=== PATIENT | male | born 1950 | race Caucasian/White ===

== ENCOUNTER 2020-05-31 18:13 | Emergency (ER) | payer MEDICARE, MEDICAID, SELFPAY ==
--- NOTE | 2020-05-31 18:18 | ECG_ITS ---
[facility] Test Date: 2020-05-31 Pat Name: Brigido Duenas Department: Room: Gender: Male Paediatric Surgeon: : 1950 Requested By: Malina Larkin Order Number: [id number] Joel MD: Adam Orellana M.D. Measurements Intervals [place] Rate: 72 P: 42 AK: 185 QRS: 241 QRSD: 107 T: 63 QT: 384 QTc: 421 Interpretive Statements SINUS RHYTHM INDETERMINATE AXIS No previous ECG available for comparison Electronically Signed On 05-31-2020 19:43:51 CDT by Adam Orellana M.D. [id number]
--- NOTE | 2020-05-31 18:18 | XRR_ITS ---
PROCEDURE INFORMATION: Exam: XR Chest, 1 View Exam date and time: 05/31/2020 6:54 PM Age: 70 years old Clinical indication: Shortness of breath; Additional info: SOB TECHNIQUE: Imaging protocol: XR of the chest Views: 1 view. COMPARISON: No relevant prior studies available. FINDINGS: Lungs: COPD/chronic bronchitis/centrilobular emphysema. Evidence of antecedent granulomatous disease. No visible active interstitial or alveolar airspace disease. Pleural space: Unremarkable. No pleural effusion. No pneumothorax. Heart/Mediastinum: Cardiac structures and configuration with arteriosclerosis. Bones/joints: Unremarkable. XR/XR chest 1V portable [id number] IMPRESSION: Nonacute.
[2020-05-31 18:33] VITALS: BP 157/88; PULSE 79; RESP 16; TEMP 36.8; O2SAT 95; BMI 23.1
--- NOTE | 2020-05-31 18:37 | ED_ITS ---
HPI - SOB/Dyspnea General: Chief Complaint: Shortness of Breath/Dyspnea Stated Complaint: SOB/ LOW O2 SATS Time Seen by Provider: 05/31/20 18:34 Source: patient and EMS Mode of arrival: EMS Limitations: no limitations History of Present Illness: HPI Narrative: 70-year-old male has a long history of COPD and is on 4 L of oxygen at home. Patient was at clinic today missing being seen for possible pneumonia as he states had increasing cough. Patient's oxygen saturation there was 74% with EMS believes his oxygen was not working so they put his oxygen off and put him on 4 L with him he has been satting in the 90s. Patient currently is in no distress is on 4 L oxygen is 96%. He denies any fever. Denies any worsening or improving factors. Associated symptoms: Deny abdominal pain, chest pain, fever(s), nausea or vomiting Review of Systems Const: Denies: fever(s), chills, body aches or change in appetite Eyes: Denies: blurry vision or eye discomfort ENMT: Denies: throat pain or dental pain Card: Denies: chest pain Resp: Reports: dyspnea and wheezing GI: Denies: abdominal pain, nausea, vomiting or diarrhea : Denies: dysuria Musc: Denies: neck pain or back pain Skin/Breast: Denies: rash Neuro: Denies: headache(s) Psych: Denies: depression Robby/Lymph: Denies: easy bruising All/Imm: Denies: urticaria PFSH ED PFSH: Medical History (Updated 05/31/20 @ 21:08 by Malina Larkin MD) COPD exacerbation Encounter for screening for other viral diseases Physical Exam Const: COMMON NORMALS: no acute distress, patient oriented x3 and healthy appe aring HENMT: COMMON NORMALS: normocephalic and atraumatic HEAD & SCALP: normocephalic and atraumatic Eye: COMMON NORMALS: Equal, round and reactive pupils present and EOMs intact bilaterally PUPIL: Yes Equal, round and reactive pupils present Neck/C-Spine: COMMON NORMALS: full ROM and supple Chest: COMMONS NORMALS: normal inspection of the chest and normal palpation of entire chest wall Resp: COMMON NORMALS: normal respiratory effort, No retractions and No use of accessory muscles AUSCULTATION: wheezes Cardio: COMMON NORMALS: regular rate, regular rhythm and No murmurs present (Cardio) RATE: regular rate RHYTHM: regular rhythm GI: COMMON NORMALS: Normal to inspection, nondistended, normoactive bowel sounds present, Soft to palpation, non-tender and no masses PALPATION: Yes Soft to palpation Extremity: COMMON NORMALS: normal to inspection and full ROM Neuro: COMMON NORMALS: patient oriented x3, moves all extremities and no focal motor deficits Psych: COMMON NORMALS: mental status grossly normal, Normal thought process present and cooperative THOUGHT PROCESS: Normal thought process present Skin: COMMON NORMALS: no rashes or lesions noted and no wounds GENERAL SKIN EXAM: no rashes or lesions noted Course Vital Signs: Vital signs: Vital Signs Temperature 98.3 F 05/31/20 18:33 Pulse Rate 74 05/31/20 20:32 Respiratory Rate 20 H 05/31/20 20:32 Blood Pressure 147/86 05/31/20 20:32 Pulse Oximetry 92 05/31/20 20:32 MDM - SOB/Dyspnea MDM Narrative: Medical decision making narrative: Patient presents here with dyspnea that is since resolved. Likely COPD exacerbation will place on steroids. X-ray here shows no signs of pneumonia and his blood work is all normal. He is at his baseline 4 L in no distress and saturations are in the mid 90s. He is to follow-up with PCP in 3 to 5 days return if worsening. Lab Data: Labs: Lab Results 05/31/20 05/31/20 05/31/20 Range/Units 19:20 20:00 20:00 WBC 9.6 (4.0-10.0) 10^3/ uL RBC 4.77 (4.1-5.3) 10^6/u L Hgb 13.4 (11.7-16.6) g/dL Hct 43.6 (42.0-52.0) % MCV 91.4 (80-94) fL MCH 28.1 (28.0-34.0) pg MCHC 30.7 (30.0-36.0) g/dL RDW 16.9 H (12.1-15.1) % Plt Count 194 (130-400) 10^3/c mm MPV 10.3 (7.4-10.4) fL Neut % (Auto) 86.4 % Lymph % (Auto) 7.0 % [place] % (Auto) 6.1 % Eos % (Auto) 0.0 % Baso % (Auto) 0.1 % Neut # (Auto) 8.26 H (1.8-7.7) 10^3/u L Lymph # (Auto) 0.7 L (0.8-4.8) 10^3/u L [place] # (Auto) 0.6 (0.2-0.9) 10^3/u L Eos # (Auto) 0.0 (0.0-0.8) 10^3/u L Baso # (Auto) 0.0 (0.0-0.1) 10^3/u L Nucleated RBC % (a uto) 0 % Nucleated RBCs # 0.0 /100WBC Sodium 135 L (136-145) mmol/L Potassium 4.0 (3.5-5.1) mmol/L Chloride 92 L (98-107) mmol/L Carbon Dioxide 31 H (22-29) mmol/L Anion Gap 16.0 (5-19) BUN 19 (8-23) mg/dL Creatinine 0.8 (0.7-1.2) mg/dL GFR Calculation 95.8 (90-130) mL/min Glucose 106 (65-115) mg/dL Calculated Osmolal ity 283 L (285-295) mOsm/k g Calcium 10.2 (8.5-10.5) mg/dL Total Bilirubin 0.3 (0.15-1.2) mg/dL AST 27 (0-40) U/L ALT 18 (0-41) U/L Alkaline Phosphata se 50 (40-130) IU/L NT-Pro-B Natriuret Pep 169 H (0-125) pg/mL Total Protein 7.3 (6.6-8.7) g/dL Albumin 4.1 (3.5-5.2) g/dL Globulin 3.2 (1.3-4.6) g/dL SARS-CoV-2 Ag (Rap id) Negative (Negative) EKG Data^: EKG 1: Attestation: I personally reviewed and interpreted this EKG as follows: EKG Interpretation Date: 05/31/20 EKG interpretation time: 18:49 Interpretation: nsr hr [address] or t wave abnormalities qrs 107 qtc 408 Discharge Plan Discharge Patient Disposition: Home Clinical Impression: COPD exacerbation Condition: Stable Prescriptions: New prednisone 50 mg tablet 50 mg PO DAILY Qty: 5 RF: 0 No Action albuterol sulfate 2.5 mg /3 mL (0.083 %) solution for nebulization 2.5 mg inhalation Q6H PRN (Reason: Shortness Of Breath) RF: 0 lisinopril 20 mg tablet 20 mg PO DAILY RF: 0 lovastatin 40 mg tablet 40 mg PO DAILY RF: 0 amlodipine 5 mg tablet 5 mg PO DAILY RF: 0 acyclovir 400 mg tablet 400 mg PO DAILY RF: 0 trazodone 150 mg tablet 150 mg PO BEDTIME RF: 0 alprazolam 2 mg tablet 2 mg PO BID PRN (Reason: Anxiety) RF: 0 duloxetine 60 mg capsule,delayed release(DR/EC) 60 mg PO BID RF: 0 fenofibrate 160 mg tablet 160 mg PO DAILY RF: 0 Anoro Ellipta 62.5-25 mcg/actuation blister with device 1 inh INHALATION BID RF: 0 Discharge Orders: Discharge Order (Routine); Ordered 05/31/20 Ordered By: Malina Larkin Referrals: Eliud Washington FNP [Primary Care Provider] - 1-3 days Discharge Diet: Advance as tolerated Discharge Activity: Resume usual activity Patient Instructions: Chronic Obstructive Pulmonary Disease (ED) Coding Level of Care Code ED [employer] for [employer] Fwd Exam Comprehensive
[2020-05-31 18:42] VITALS: BP 157/88; PULSE 74; RESP 18; O2SAT 95
[2020-05-31 19:57] LABS: SARS Covid-2 Antigen Negative (Negative)
[2020-05-31 20:17] LABS: Basophils % 0.1 %; Hematocrit 43.6 % (42.0-52.0); Hemoglobin 13.4 g/dL (11.7-16.6); Lymphocytes # 0.7 10^3/uL (0.8-4.8); Mean Corpuscular HGB Conc 30.7 g/dL (30.0-36.0); Mean Corpuscular Hemoglobin 28.1 pg (28.0-34.0); Mean Corpuscular Volume 91.4 fL (80-94); Mean Platelet Volume 10.3 fL (7.4-10.4); Monocytes # 0.6 10^3/uL (0.2-0.9); Monocytes % 6.1 %; Neutrophils # 8.26 10^3/uL (1.8-7.7); Neutrophils % 86.4 %; Nucleated Red Blood Cells % 0 %; Platelet Count 194 10^3/cmm (130-400); Red Blood Count 4.77 10^6/uL (4.1-5.3); Red Cell Distribution Width 16.9 % (12.1-15.1); White Blood Count 9.6 10^3/uL (4.0-10.0)
[2020-05-31 20:32] VITALS: BP 147/86; PULSE 74; RESP 20; O2SAT 92
[2020-05-31 20:47] LABS: Alanine Aminotransferase 18 U/L (0-41); Albumin Level 4.1 g/dL (3.5-5.2); Alkaline Phosphatase 50 IU/L (40-130); Aspartate Amino Transferase 27 U/L (0-40); Blood Urea Nitrogen 19 mg/dL (8-23); Calcium 10.2 mg/dL (8.5-10.5); Carbon Dioxide 31 mmol/L (22-29); Chloride 92 mmol/L (98-107); Globulin 3.2 g/dL (1.3-4.6); Glomerular Filtration Rate 95.8 mL/min (90-130); Glucose 106 mg/dL (65-115); NT Pro B Type Natriuretic Pept 169 pg/mL (0-125); Osmolality Calculated 283 mOsm/kg (285-295); Sodium 135 mmol/L (136-145); Total Bilirubin 0.3 mg/dL (0.15-1.2); Total Protein 7.3 g/dL (6.6-8.7)
--- NOTE | 2020-06-01 01:46 | PC.NURSE ---
This RN tried to discharge patient, was unable to get ahold of the daughter he lives with, contacted daughter in [place] to try to setup transport, patient was unable to take Uber because he required O2 and did not have a house julien, patient did not meet criteria for ambulance, This RN called for a welfare check to patient's address to see if daughter was home, Lizz GLORIA stated there was no vehicle or anybody at residence, patient will be able to stay in the ER tonight, after arrangements were made to have patient stay in the ER tonight, the daughter he lives with called the ER, patient stated that she would come get patient to take him home, patient's ride has not not showed up at this time, last spoke to patient's daughter at 0.
[2020-06-01 06:31] VITALS: BP 143/76; PULSE 87; RESP 18; O2SAT 96
== END 2020-06-01 06:33 | disposition home or self-care (01) ==
PROVIDERS: Emergency Provider Emergency Medicine; PCP Nurse Practitioner Family
DX: J44.1 Chronic obstructive pulmonary disease with (acute) exacerbation (principal)
CPT/HCPCS: 12345; 36415; 71045; 80053; 83880; 85025; 87040; 87426; 93005; 96374; 96375; 99283; 99284; J2930